=== PATIENT | male | born 1955 | race Two or more races ===

== ENCOUNTER 2020-04-02 07:20 | Day surgery (SDC) | payer OTHER | END 2020-04-02 13:25 | disposition home or self-care (01) | LOC: AMB-ENDOS 07:20 | PROVIDERS: ATTEND Surgery | DX: D12.3 Benign neoplasm of transverse colon (principal); D12.5 Benign neoplasm of sigmoid colon; D12.7 Benign neoplasm of rectosigmoid junction; Z20.822 Contact with and (suspected) exposure to COVID-19 ==

== ENCOUNTER 2020-04-25 08:30 | Inpatient (IN) | payer OTHER ==
[~2020-04-25] VITALS: Ht 175.3 cm; Wt 102.1 kg
[2020-04-25] MEDS ORDERED: LOTREL 10-20 M1 EACH (09:23)
[2020-05-05] MEDS ORDERED: PERCOCET 5-3251 EACH PO (11:16)
== END 2020-05-05 13:44 | disposition home or self-care (01) | DRG 331 ==
LOC: SURH 05-01 08:30 → O/R 05-01 09:04 → SURG 05-01 09:04 → SURH 05-01 14:15 → SURG 05-01 17:10
PROVIDERS: ADMIT Surgery; ATTEND Surgery
PROC: 0DTP4ZZ Resection of Rectum, Percutaneous Endoscopic Approach (ICD-10-PCS; 2020-05-01)
PROC: 07BC4ZZ Excision of Pelvis Lymphatic, Percutaneous Endoscopic Approach (ICD-10-PCS; 2020-05-01)
PROC: 0DTN4ZZ Resection of Sigmoid Colon, Percutaneous Endoscopic Approach (ICD-10-PCS; principal; 2020-05-01 14:15)
DX: D12.5 Benign neoplasm of sigmoid colon (principal); R59.0 Localized enlarged lymph nodes; I10 Essential (primary) hypertension